=== PATIENT | female | born 1960 | race Caucasian/White ===

== ENCOUNTER 2016-05-01 06:42 | Emergency (ER) | payer BC ==
--- NOTE | 2016-05-03 12:39 | ER ---
ADMIT: 05/01/2016 RM/LOC: ER [facility] MR#: [id number] [address] [address] [address] [place] [address] Emergency Room Report SEX: F AGE: 56 : 1960 DATE: 05/01/2016 ADDENDUM: A 56-year-old right female coming in with epigastric discomfort she has a hiatal hernia that has gotten worse. It started to radiate. EKG was negative. Chest x-ray, did not really show anything major. At this time, we are going to have her follow up with Dr. Pineda for this for possible surgery referral. I did give her tramadol oral 50 one p.o. q.6 hours p.r.n. pain, which she uses on and off, #30, no refills. CONDITION ON DISCHARGE: Good. Charlie García MD/ sabi JOB #: [id number] CC: Charlie García MD, Attending Physician Kris Pineda MD, Family Physician
[2016-06-21] MEDS ORDERED: ZOLOFT DPS50 MG PO (14:39)
[2016-06-21] MEDS ORDERED: NORVASC DPS10 MG PO (14:40)
[2016-06-21] MEDS ORDERED: ULTRAM DPS50 MG PO (14:40)
[2016-06-21] MEDS ORDERED: LASIX DPS20 MG PO (14:40)
[2016-06-21] MEDS ORDERED: MICRO-K DPS10 MEQ PO (14:41)
[2016-06-21] MEDS ORDERED: ELAVIL-DPS10 MG PO (14:41)
[2016-06-21] MEDS ORDERED: NEXIUM20 MG PO (14:41)
[2016-06-21] MEDS ORDERED: NORCO 5-325 TA1 EACH PO (14:42)
== END 2016-05-01 09:20 | disposition home or self-care (01) ==
LOC: ER 06:42
DX: K21.9 Gastro-esophageal reflux disease without esophagitis (principal); I10 Essential (primary) hypertension; F32.9 Major depressive disorder, single episode, unspecified; Z88.0 Allergy status to penicillin; Z79.899 Other long term (current) drug therapy

== ENCOUNTER 2016-05-24 05:54 | Day surgery (SDC) | payer BC ==
[~2016-05-24] VITALS: Ht 182.9 cm; Wt 92.5 kg
--- NOTE | 2016-05-29 10:10 | OR ---
ADMIT: 05/24/2016 RM/LOC: [facility] MR#: [id number] [address] [address] [address] [place] [address] Operative/Delivery Room Report SEX: F AGE: 56 : 1960 SURGERY DATE: 05/24/2016 SURGEON: Kd Vieyra MD PREOPERATIVE DIAGNOSIS: Gastroesophageal reflux disease. POSTOPERATIVE DIAGNOSES: 1. Gastritis. 2. Esophagitis. 3. Hiatal hernia. PROCEDURE: Esophagogastroduodenoscopy with biopsy. ANESTHESIA: IV general. DESCRIPTION OF PROCEDURE: The patient was taken to the endoscopy suite and placed left side down on her hospital cart. A bite-block was placed and IV sedation was established. The upper endoscope was advanced through the oropharynx into the esophagus without difficulty. The scope was pushed under visualization of the stomach. Air was used to insufflate the stomach. The pylorus was intubated. The first and second portions of the duodenum were examined and appeared normal. The scope was withdrawn to the stomach. In the antrum, there was moderate hyperemia and biopsies were obtained. On retroflexion of the scope, the gastric body, fundus, and cardia appeared normal. There was a small hiatal hernia visualized on retroflexion. The scope was withdrawn to the gastroesophageal junction, where there was mild inflammation. Biopsies were obtained. The remainder of the esophageal mucosa appeared normal upon withdrawal of the scope. The patient tolerated the procedure well and transferred to the recovery area in stable condition. Kd Vieyra MD/ sabi JOB #: [id number] CC: Kd Vieyra, Attending Physician Kris Pineda, Family Physician
[2016-06-21] MEDS ORDERED: ZOLOFT DPS50 MG PO (14:39)
[2016-06-21] MEDS ORDERED: NORVASC DPS10 MG PO (14:40)
[2016-06-21] MEDS ORDERED: LASIX DPS20 MG PO (14:40)
[2016-06-21] MEDS ORDERED: ULTRAM DPS50 MG PO (14:40)
[2016-06-21] MEDS ORDERED: MICRO-K DPS10 MEQ PO (14:41)
[2016-06-21] MEDS ORDERED: NEXIUM20 MG PO (14:41)
[2016-06-21] MEDS ORDERED: ELAVIL-DPS10 MG PO (14:41)
[2016-06-21] MEDS ORDERED: NORCO 5-325 TA1 EACH PO (14:42)
== END 2016-05-24 09:50 | disposition home or self-care (01) ==
LOC: SSS 05:54
PROC: 0DB68ZX Excision of Stomach, Via Natural or Artificial Opening Endoscopic, Diagnostic (ICD-10-PCS; principal; 2016-05-24)
PROC: 0DB48ZX Excision of Esophagogastric Junction, Via Natural or Artificial Opening Endoscopic, Diagnostic (ICD-10-PCS; principal; 2016-05-24)
DX: K29.50 Unspecified chronic gastritis without bleeding (principal); K44.9 Diaphragmatic hernia without obstruction or gangrene; I10 Essential (primary) hypertension; F32.9 Major depressive disorder, single episode, unspecified; Z98.51 Tubal ligation status; Z98.890 Other specified postprocedural states; Z88.0 Allergy status to penicillin; Z88.8 Allergy status to other drugs, medicaments and biological substances; Z79.899 Other long term (current) drug therapy; Z91.040 Latex allergy status

== ENCOUNTER → 2016-06-06 | Outpatient (CLI) | payer BC ==
[~2016-06-06] MED LIST: ELAVIL-DPS10 MG PO; LASIX DPS20 MG PO; MICRO-K DPS10 MEQ PO; NEXIUM20 MG PO; NORCO 5-325 TA1 EACH PO; NORVASC DPS10 MG PO; ULTRAM DPS50 MG PO; ZOLOFT DPS50 MG PO
== END | disposition home or self-care (01) ==
LOC: RAD.S 10:35
DX: Z12.31 Encounter for screening mammogram for malignant neoplasm of breast (principal)

== ENCOUNTER 2016-06-19 05:32 | Observation (INO) | payer BC ==
[~2016-06-19] VITALS: Ht 182.9 cm; Wt 90.2 kg
--- NOTE | 2016-06-20 10:08 | OR ---
ADMIT: 06/19/2016 RM/LOC: [id number] [id number] [address] [address] [address] [place] [address] Operative/Delivery Room Report SEX: F AGE: 56 : 1960 SURGERY DATE: 06/19/2016 SURGEON: Kd Vieyra MD PREOPERATIVE DIAGNOSIS: Hiatal hernia with refractory gastroesophageal reflux disease. POSTOPERATIVE DIAGNOSIS: Hiatal hernia with refractory gastroesophageal reflux disease. PROCEDURE: Laparoscopic hiatal hernia repair and floppy Marlin fundoplication. ANESTHESIA: General. ESTIMATED BLOOD LOSS: 10 mL. DESCRIPTION OF PROCEDURE: The patient was taken to the operating room and placed supine on the operating room table. General anesthesia was established. The abdomen was prepped and draped in the standard surgical fashion. A 1 cm supraumbilical incision was made in the skin. The fascia was grasped with Yousuf clamp, and a Veress needle was advanced into the peritoneal cavity. Carbon dioxide was used to insufflate the abdomen to 15 mmHg pressure. The Veress needle was withdrawn, and a 1 cm blunt-tipped trocar was placed. Laparoscope was advanced and showed intraperitoneal position with no damage to underlying structures. Next, 5 mm right upper quadrant, left upper quadrant, left lateral ports were placed under visualization. The Corine liver retractor was advanced from a 5 mm subxiphoid incision and used to retract the left lobe of the liver. The gastrohepatic ligament was divided in the avascular plane with Harmonic Scalpel. This allowed exposure of the right crura. This was dissected carefully from the hernia attachments and the peritoneal lining in the mediastinum up to its junction with the left crura. This was also dissected posteriorly to its junction with the left crura. The sac was reduced in its entirety. The fundus was then completely mobilized with division of the short gastric vessels with Harmonic Scalpel. This allowed complete exposure of the posterior left crura. Retroesophageal space was created under direct visualization to allow passage of a posterior fundal limb. Next, a posterior- to-anterior crural repair was performed with 0 Surgidac suture and the Endo Stitch device. This allowed adequate approximation without tension on the repair. Next, a floppy 360 degree Marlin fundoplication was performed. A ADMIT: 06/19/2016 RM/LOC: [facility] MR#: [id number] [address] [address] [address] [place] [address] Operative/Delivery Room Report SEX: F AGE: 56 : 1960 posterior fundal limb was secured to an anterior limb at the gastroesophageal junction over a distance of 1.5 cm with two separate 0 Surgidac sutures. This incorporated partial thickness bites at the GE junction to maintain fixation of the wrap. This was performed without tension or torsion. The Corine liver retractor was withdrawn. The ports were removed under visualization without evidence of bleeding. The fascial margin at the 11 mm port site was approximated with the suture passer and an 0 Vicryl tie. The abdomen was allowed to deflate. Skin edges were approximated with 4-0 Monocryl in a subcuticular fashion and Dermabond. Local anesthetic was injected at the incisions. Sponge, needle, and instrument counts were correct at the end of the case. The patient tolerated the procedure well and transferred to the recovery area in stable condition. Kd Vieyra MD/ sabi JOB #: [id number] CC: Kd Vieyra, Attending Physician Kris Pineda, Family Physician
[2016-06-21] MEDS ORDERED: ZOLOFT DPS50 MG PO (14:39)
[2016-06-21] MEDS ORDERED: NORVASC DPS10 MG PO (14:40)
[2016-06-21] MEDS ORDERED: LASIX DPS20 MG PO (14:40)
[2016-06-21] MEDS ORDERED: ULTRAM DPS50 MG PO (14:40)
[2016-06-21] MEDS ORDERED: NEXIUM20 MG PO (14:41)
[2016-06-21] MEDS ORDERED: MICRO-K DPS10 MEQ PO (14:41)
[2016-06-21] MEDS ORDERED: ELAVIL-DPS10 MG PO (14:41)
[2016-06-21] MEDS ORDERED: NORCO 5-325 TA1 EACH PO (14:42)
== END 2016-06-20 14:45 | disposition home or self-care (01) ==
LOC: SSS 05:32 → 6PED 08:55 → SSS 12:27 → 6PED 06-20 14:45
PROVIDERS: ADMIT Surgery
PROC: 0BQS4ZZ (ICD-10-PCS; principal; 2016-06-19)
DX: K44.9 Diaphragmatic hernia without obstruction or gangrene (principal); K21.9 Gastro-esophageal reflux disease without esophagitis; M19.90 Unspecified osteoarthritis, unspecified site; I10 Essential (primary) hypertension; G43.909 Migraine, unspecified, not intractable, without status migrainosus; Z79.899 Other long term (current) drug therapy; Z98.890 Other specified postprocedural states; Z88.0 Allergy status to penicillin; Z88.8 Allergy status to other drugs, medicaments and biological substances; Z87.891 Personal history of nicotine dependence